=== PATIENT | female | born 1955 | race Hispanic/Latino ===

== ENCOUNTER 2024-12-29 09:42 | Emergency (ER) | payer OTHER ==
[~2024-12-29] VITALS: Ht 149.9 cm; Wt 66.7 kg
--- NOTE | 2024-12-29 10:14 | ERN ---
ED Note History of Present Illness Stated Complaint: ABNORMAL EKG Chief Complaint: Other Problems Time Seen by MD: 09:49 Dictation: PATIENT IS A 69-YEAR-OLD FEMALE COMING IN TODAY WITH COMPLAINTS OF HAVING PAIN BETWEEN HER SHOULDER BLADES WHEN SHE LAYS DOWN ONSET WAS YESTERDAY. ALSO STATES SHE HAS SOME PAIN TO HER BILATERAL SHOULDERS. HAS PAIN. NO NAUSEA VOMITING NO JAW PAIN NO ARM PAIN. SHE STATES SHE THOUGHT SHE HAD BEEN MOVING SOME HEAVY POTS EARLIER THIS WEEK AND I MIGHT HE HAD BEEN MOVING A LE. SHOULDERS IS REPRODUCIBLE WITH PALPATION AND MOVEMENT. CURRENTLY STATES SHE IS HAVING NO PAIN AT THIS TIME AT ALL SHOULDER PAIN OR ARM PAIN. SAID SHE SAW HER PRIMARY CARE DOCTOR WHO PERFORMED AN EKG IN HER OFFICE AND SAID SHE HAD A NORMAL EKG AND TO COME TO THE EMERGENCY ROOM. Allergies: Coded Allergies: Penicillins (Unverified Allergy, Unknown, 12/29/24) Past Medical History Past Medical History: Diabetes-Type II, Hypertension, Other Additional Past Medical Hx: ckd, w/ kidney transplant Surgical History: Other, Surgical History Other: kidney transplant recepient, pertioneal dialysis, right ankle sx History: Not Applicable RN Note Reviewed/Agreed w/PFSH: Yes Review of System Dictation CONSTITUTIONAL: NEGATIVE EXCEPT FOR HPI HEAD/FACE: NEGATIVE EXCEPT FOR HPI EENT: NEGATIVE EXCEPT FOR HPI RESPIRATORY: NEGATIVE EXCEPT FOR HPI GASTROINTESTINAL/ABDOMINAL: NEGATIVE EXCEPT FOR HPI GENITOURINARY: NEGATIVE EXCEPT FOR HPI MUSCULOSKELETAL: NEGATIVE EXCEPT FOR HPI BILATERAL ARM PAIN AND PAIN BETWEEN HER SHOULDER BLADES WHEN LYING DOWN ONLY INTEGUMENTARY: NEGATIVE EXCEPT FOR HPI NEUROLOGICAL/PSYCH: NEGATIVE EXCEPT FOR HPI HEMATOLOGIC/LYMPHATIC: NEGATIVE EXCEPT FOR HPI ALL SYSTEMS NEGATIVE, EXCEPT NOTED ABOVE. 13 POINT REVIEW OF SYSTEMS ASSESSED AND ALL NEGATIVE EXCEPT FOR ABOVE. Initial Vital Sign VS Vital Signs Date Time Temp Pulse Resp B/P (MAP) Pulse Ox O2 Delivery O2 Flow Rate FiO2 12/29/24 09:45 97.9 75 16 118/62 98 Room Air 0 12/29/24 09:49 21 Physical Exam Dictation VITAL SIGNS REVIEWED GENERAL APPEARANCE: ALERT, ORIENTED X 3, NO ACUTE DISTRESS, WELL DEVELOPED, NOURISHED. DENIES PAIN AT THIS TIME. HEAD AND FACE: NON-TRAUMATIC. EYES: PERRL, PINK CONJUNCTIVAS, EYELID NO TRAUMA, ANTERIOR CHAMBER WITH ARCUS SENILIS. EARS: PINNAS INTACT AND NO SIGNS OF TRAUMA OR ERYTHEMA EAR CANALS CLEAR AND NO DISCHARGE TM NO ERYTHEMA NOSE: NO DISCHARGE, NO BLEEDING. OROPHARYNX: MOUTH NORMAL, TONGUE PINK, PHARYNX CLEAR,NO ERYTHEMA, TONSILS NO EXUDATES, NO ABSCESSES NOTED, MUCOUS MEMBRANE MOIST NECK: SUPPLE, NON-TENDER, NO THYROMEGALY, NO MASSES, NO JVD, NO BRUITS BREAST:DEFERRED CHEST:NO TENDERNESS, NO CREPITUS, NO PARADOXICAL MOVEMENT, NO RETRACTIONS LUNGS:CLEAR, WELL-VENTILATED, SYMMETRIC, NO RALES, NO WHEEZING, NO RHONCHI, NO STRIDOR, GOOD BREATH SOUNDS BILATERALLY HEART: REGULAR RATE, REGULAR RHYTHM, NO MURMUR, NO GALLOPS VASCULAR: NO PERIPHERAL EDEMA, ABDOMEN: SOFT, POSITIVE BOWEL SOUNDS, NONDISTENDED, NO GUARDING, NONTENDER, NO REBOUND, NO MASSES NO HEPATOMEGALY, NO SPLENOMEGALY, NO RYDER'S SIGN, NO HERNIAS. RECTAL: DEFERRED GENITAL: DEFERRED NEUROLOGICAL: NORMAL SPEECH, MOTOR FUNCTION INTACT, SENSORY FUNCTION INTACT MUSCULOSKELETAL: NECK NONTENDER, FULL RANGE OF MOTION, BACK NONTENDER, FULL RANGE OF MOTION, EXTREMITIES: TENDERNESS TO BILATERAL DELTOIDS WITH PALPATION, FULL RANGE OF MOTION SKIN: COLOR PINK, DRY, NO TURGOR, NO RASH, NO LACERATIONS, NO ABRASIONS, NO CONTUSIONS. LYMPHATIC: DEFERRED Results (Laboratory/Radiology) Laboratory/Radiology Laboratory Tests Test 12/29/24 10:05 12/29/24 10:31 12/29/24 11:47 White Blood Count 5.5 K/uL (4.8-10.8) Red Blood Count 3.32 MIL/uL (4.00-5.50) L Hemoglobin 9.9 g/dL (12.0-16.0) L Hematocrit 31.1 % (36-48) L Mean Corpuscular Volume 93.7 fL (79-99) Mean Corpuscular Hemoglobin 29.8 pg (27.0-33.0) Mean Corpuscular Hemoglobin Concent 31.8 g/dL (32.0-36.0) L Red Cell Distribution Width 14.0 % (11.0-15.5) Platelet Count 204 K/uL (130-400) Mean Platelet Volume 11.7 fL (7.5-10.5) H Immature Granulocyte % (Auto) 2.0 % (0-1) H Neutrophils (%) (Auto) 67.4 % (40.0-77.0) Lymphocytes (%) (Auto) 13.8 % (21.0-51.0) L Monocytes (%) (Auto) 14.8 % (3.0-13.0) H Eosinophils (%) (Auto) 1.5 % (0.0-8.0) Basophils (%) (Auto) 0.5 % (0.0-5.0) Neutrophils # (Auto) 3.7 K/uL (1.8-7.7) Lymphocytes # (Auto) 0.8 K/uL (1.0-4.8) L Monocytes # (Auto) 0.8 K/uL (0.1-1.0) Eosinophils # (Auto) 0.08 K/uL (0.00-0.70) Basophils # (Auto) 0.03 K/uL (0.00-0.20) Absolute Immature Granulocyte (auto 0.11 K/uL (0-1) Nucleated Red Blood Cells 0.9 % (0.0-0.19) H Prothrombin Time 10.3 SEC (9.6-11.6) Prothromb Time International Ratio 0.97 (0.85-1.15) Activated Partial Thromboplast Time 27.0 SEC (26.3-35.5) Sodium Level 139 mmol/L (136-145) Potassium Level 4.0 mmol/L (3.5-5.1) Chloride Level 104 mmol/L (101-111) Carbon Dioxide Level 27 mmol/L (21-32) Blood Urea Nitrogen 23 mg/dL (7-18) H Creatinine 1.6 mg/dL (0.5-1.0) H Glomerular Filtration Rate Calc 34 mL/min (>90) Random Glucose 158 mg/dL (70-105) H Total Calcium 8.5 mg/dL (8.5-10.1) Troponin I High Sensitivity 12 ng/L (4-50) 12 ng/L (4-50) Lipase 38 U/L (16-77) Urine Color LIGHT-YELLOW (YELLOW) Urine Appearance CLEAR (CLEAR) Urine pH 5.5 (5.0-8.0) Urine Specific Paton 1.017 (1.001-1.031) Urine Protein NEGATIVE mg/dL (NEGATIVE) Urine Glucose (UA) NEGATIVE mg/dL (NEGATIVE) Urine Ketones NEGATIVE mg/dL (NEGATIVE) Urine Occult Blood NEGATIVE (NEGATIVE) Urine Nitrate NEGATIVE (NEGATIVE) Urine Bilirubin NEGATIVE mg/dL (NEGATIVE) Urine Urobilinogen 0.2 mg/dL (0.2-1.0) Urine Leukocyte Esterase NEGATIVE Flak[place]/uL Urine RBC None /HPF (0-1) Urine WBC 2-5 /HPF (0-1) H Urine Squamous Epithelial Cells RARE /HPF (0-2) Urine Bacteria None /HPF (None Seen) CHEST 1VW REASON: Shortness of breath COMPARISON: None. FINDINGS: Single view of the chest was obtained. Lungs are clear. There is elevation of the right hemidiaphragm. Heart size is normal. There is no pulmonary vascular congestion. Mediastinum and bony thorax appear unremarkable. IMPRESSION: 1. No evidence of airspace consolidation or pulmonary venous congestion. Labs Reviewed?: Yes EKG Comment: EKGS SINUS RHYTHM WITH HEART RATE 70 03:00 AXIS NORMAL/NONSPECIFIC T-WAVE CHANGES TO LATERAL LEADS. 1222/2ND EKG SINUS RHYTHM/HEART RATE 71/AXIS NORMAL NONSPECIFIC T-WAVE CHANGES IN LATERAL LEADS NO INVERSION REPEAT HIGH SENSITIVITY TROPONIN IS 12, HEART SCORE FIVE ED Course ED Course Orders Procedure Category Date Status Time 12 Lead Ekg Tracing- EKG 12/29/24 Complete Technical 09:55 Cbc With Differential LAB 12/29/24 Complete 09:55 Basic Metabolic Panel LAB 12/29/24 Complete 09:55 Pt And Ptt LAB 12/29/24 Complete 09:55 Troponin I High LAB 12/29/24 Complete Sensitivity 09:55 Urinalysis LAB 12/29/24 Complete W/Microscopic 09:55 Chest 1vw RAD 12/29/24 Resulted 09:55 Lipase LAB 12/29/24 Complete 10:05 0.9%Nacl 1000ml (Ns PHA 12/29/24 Complete 1000ml) 11:00 12 Lead Ekg Tracing- EKG 12/29/24 Logged Technical 11:34 Troponin I High LAB 12/29/24 Complete Sensitivity 11:34 Current Medications Medications (Trade) Dose Ordered Sig/Gisela Route PRN Reason Start Time Stop Time Status Last Admin Dose Admin Sodium Chloride 1,000 ml @ 0 mls/hr ONCE ONCE IV 12/29/24 11:00 12/29/24 11:03 DC 12/29/24 11:36 Vital Signs Date Time Temp Pulse Resp B/P (MAP) Pulse Ox O2 Delivery O2 Flow Rate FiO2 12/29/24 11:35 97.9 74 21 123/58 98 Room Air* 0 21 12/29/24 09:49 97.9 75 16 118/62 98 Room Air* 0 21 12/29/24 09:45 97.9 75 16 118/62 98 Room Air 0 1240 DISCUSSED ALL FINDINGS WITH PATIENT TO INCLUDE HER EKG LABS CHEST X-RAY AND INTERVENTIONS FOR CREATININE 1.6 AND GFR. SHE AND HER DO NOT WISH TO STAY IN THE HOSPITAL AT THIS TIME. SHE WAS STRONGLY ADVISED TO FOLLOW UP WITH HER TRANSPLANT NEPHROLOGISTS AND PHYSICIANS AT [facility]. QUESTIONS HEART Score Response (Comments) Value EKG: Repolarization changes 1 Age: > 65yrs (+2) 2 Risk Factors: 3+ risk factors (+2) 2 Initial Troponin: Normal limit (0) 0 Total 5 Medical Decision Making MDM MDM: DIFFERENTIAL DIAGNOSIS: ACS/AMI/ELECTROLYTE IMBALANCE/DEHYD RATION/PNEUMONIA/BRONCHITIS RATIONALE: TESTS CONSIDERED AND ORDERED SECONDARY TO SHARED DECISION MAKING INCLUDE: EKG/LABS/RADIOLOGY PREVIOUS OUTSIDE RECORDS REVIEWED: OLD ER VISITS. RISK OF COMPLICATION AND/OR MORBIDITY OR MORTALITY OF PATIENT MANAGEMENT: NONE MEDICATIONS-PER MEDICATION RECONCILIATION NEED FOR HOSPITALIZATION: PATIENT DOES NOT MEET CRITERIA FOR HOSPITALIZATION. P ATIENT REFUSES ADMISSION AGREED TO THE NORMAL SALINE 1 L BOLUS. HE WANTS TO FOLLOW UP WITH HER TRANSPLANT TEAM AT [facility] IN [place] NEED FOR EMERGENCY MAJOR/MINOR SURGERY: NO THERE ARE NO SOCIAL CONCERNS WITH THIS PATIENT. PRESCRIPTION DRUG MANAGEMENT PRESCRIPTIONS WILL INCLUDE SYMPTOMATIC CARE PATIENT'S PRIOR EXTERNAL MEDICAL RECORDS FROM OTHER ER VISITS WERE REVIEWED BY ME INDICATED. PRIOR TESTING AND RESULTS FROM PREVIOUS VISITS WERE REVIEWED. PRIOR TESTS WERE TAKEN INTO ACCOUNT WITH MEDICAL DECISION MAKING AND RESOURCE UTILIZATION, INDEPENDENT HISTORIAN/HISTORIANS WERE USED TO OBTAIN COMPLETE MEDICAL HISTORY. I INDEPENDENTLY INTERPRETED THE TEST THAT WERE PERFORMED, RESULTS WERE REVIEWED BY ME AND CONSIDERED FINDINGS ON RADIOLOGY IF ORDERED. MEDICAL MANAGEMENT AND EXAMINATION INTERPRETATION DISCUSSIONS WERE HAD BY ME WITH OTHER QUALIFIED HEALTHCARE PROFESSIONALS INDICATED FOR THE PATIENT'S CARE. DX & DISP Disposition: Discharge Departure Impression: Primary Impression: Atypical chest pain Additional Impressions: Stage 3b chronic kidney disease, Uncontrolled diabetes mellitus, Anemia of chronic renal failure, stage 3b Condition: Stable Additional Instructions: FOLLOW-UP WITH PRIMARY CARE PROVIDER IN 1 TO 2 DAYS. TAKE MEDICATIONS DIRECTED HERE IN THE EMERGENCY ROOM. OKAY TO CONTINUE HOME MEDICATIONS UNLESS OTHERWISE DISCUSSED DURING YOUR VISIT IN THE EMERGENCY ROOM TODAY. RETURN TO YOUR NEAREST EMERGENCY ROOM IF SYMPTOMS WORSEN OR IF THERE IS NO IMPROVEMENT. CALL 911 IF YOU NEED IMMEDIATE ASSISTANCE. TAKE TYLENOL [id number] NEEDED AND IF NO CONTRAINDICATIONS ARE PRESENT. INCREASE ORAL HYDRATION. A WOUND CULTURE OR URINE CULTURE WAS ORDERED HERE IN THE EMERGENCY ROOM DEPARTMENT PLEASE FOLLOW-UP WITH PRIMARY CARE PROVIDER AND ADVISE THEM TO GET REPEAT PORTS FROM OUR FACILITY. IF YOU HAD ANY ARMAND WRAP/SPLINTS THAT WERE APPLIED HERE, PLEASE DO NOT REMOVE THEM UNTIL YOU SEE YOUR PRIMARY CARE OR SPECIALTY. FOLLOW UP WITH THE YOUR TRANSPLANT DOCTOR IN THE NEXT 1-2 DAYS. FOR YOUR CREATININE OF 1.6. INCREASE WATER INTAKE. SUGGEST TYLENOL ARTHRITIS 650 MG 1-2 EVERY 8 HOURS NEEDED FOR YOUR PAIN. Referrals: SAHRA TORRES MD (PCP) Time of Disposition: 12:42 I have reviewed the case, and I agree with, Diagnosis and Plan SUE FAGAN NP Dec 29, 2024 10:14
--- NOTE | 2024-12-29 10:21 | HMCIMG ---
CHEST 1VW REASON: Shortness of breath COMPARISON: None. FINDINGS: Single view of the chest was obtained. Lungs are clear. There is elevation of the right hemidiaphragm. Heart size is normal. There is no pulmonary vascular congestion. Mediastinum and bony thorax appear unremarkable. IMPRESSION: 1. No evidence of airspace consolidation or pulmonary venous congestion.
[2024-12-29 10:25] LABS: CREATININE 1.6 mg/dL (0.5-1.0); GLOMERULAR FILTR. RATE CALC 34.0 mL/min (>90); GLUCOSE,RANDOM 158.0 mg/dL (70-105); SODIUM SERUM 139.0 mmol/L (136-145); UREA NITROGEN, BLOOD 23.0 mg/dL (7-18)
[2024-12-29 10:47] LABS: INR 0.97 (0.85-1.15)
[2024-12-29 10:52] LABS: IMMATURE GRANULOCYTE ABSOLUTE 0.11 K/uL (0-1); NUCLEATED RED BLOOD CELLS 0.9 % (0.0-0.19); PLATELET COUNT (AUTO) 204 K/uL (130-400); RED BLOOD CELL COUNT(AUTO) 3.32 MIL/uL (4.00-5.50); RED CELL DISTRIBUTION WIDTH 14.0 % (11.0-15.5); WHITE BLOOD COUNT (AUTO) 5.5 K/uL (4.8-10.8)
--- NOTE | 2024-12-29 11:11 | EKG ---
[facility] Test Date: 2024-12-29 Test Time: 10:00:56 Pat Name: PAUL ROJAS Department: ED Room: Gender: F Manager Cost: [id number] : 1955 Requested By: REBECCA DIAZ Order Number: [id number] Reading MD: Arti Asencio Measurements Intervals Raymond Rate: 73 P: 14 HI: 156 QRS: 42 QRSD: 83 T: 100 QT: 399 QTc: 440 Interpretive Statements Sinus rhythm Abnormal T, consider ischemia, lateral leads No previous ECG available for comparison Electronically Signed On 01-01-2025 14:57:41 CDT by Arti Asencio Please click the below link to view image of tracing.
[2024-12-29 11:16] LABS: APPEARANCE,URINE CLEAR (CLEAR); GLUCOSE, URINE (UA) NEGATIVE (NEGATIVE); LEUKOCYTE ESTERASE ,URINE NEGATIVE Leu/uL (NEGATIVE); NITRATE,URINE NEGATIVE (NEGATIVE); OCCULT BLOOD,URINE NEGATIVE (NEGATIVE)
[2024-12-29 11:25] LABS: SQUAMOUS EPITHELIAL CELL,UR RARE /HPF (0-2)
[2024-12-29 11:35] VITALS: BP 123/58; PULSE 74; RESP 21; TEMP 97.9; O2SAT 98
[2024-12-29] MEDS: 0.9%NACL 1000ML 1,000 ML IV ONE (11:36)
== END 2024-12-29 13:50 | disposition home or self-care (01) ==
LOC: EDH 09:42
DX: R07.89 Other chest pain (principal); I12.0 Hypertensive chronic kidney disease with stage 5 chronic kidney disease or end stage renal disease; E11.22 Type 2 diabetes mellitus with diabetic chronic kidney disease; N18.6 End stage renal disease; D63.1 Anemia in chronic kidney disease; E11.65 Type 2 diabetes mellitus with hyperglycemia; Z88.0 Allergy status to penicillin; Z94.0 Kidney transplant status; Z99.2 Dependence on renal dialysis
CPT/HCPCS: 99285; 96360; 71045; 84484 ×2; 80048; 83690; 85025; 85610; 85730; 81001; 36415; 93005; J7030